=== PATIENT | female | born 2000 | race Caucasian/White ===

== ENCOUNTER 2018-11-07 10:36 | Day surgery (SDC) | payer BC, OTHER ==
[~2018-11-07] VITALS: Ht 167.6 cm; Wt 73.0 kg
[2018-11-07 11:16] VITALS: BP 113/76
== END 2018-11-07 16:15 | disposition home or self-care (01) ==
LOC: OUT 10:36
PROVIDERS: ATTEND Obstetrics & Gynecology Gynecology
DX: K66.0 Peritoneal adhesions (postprocedural) (postinfection) (principal); G89.29 Other chronic pain; R10.2 Pelvic and perineal pain
CPT/HCPCS: 44180; 81001; 81025; 87086; J1100; J1885; J2175; J2250; J2370; J2405; J2704; J3010; J3490; J7120

== ENCOUNTER → 2020-07-19 | Outpatient (CLI) | payer OTHER ==
[~2020-07-19] MED LIST: BUPR300T49 PO; BUSP10TA PO; OMNIPAQUE 350 MG/ML, 150 ML BOTTLE ONE; birth control
== END | disposition home or self-care (01) ==
LOC: CFH 11:21
PROVIDERS: ATTEND Obstetrics & Gynecology Gynecology
DX: R39.198 Other difficulties with micturition (principal); R10.2 Pelvic and perineal pain; Z90.49 Acquired absence of other specified parts of digestive tract
CPT/HCPCS: 74178; Q9967